=== PATIENT | male | born 1985 | race Caucasian/White ===

== ENCOUNTER 2021-06-13 18:42 | Emergency (ER) | payer OTHER ==
[2021-06-13] MEDS ORDERED: NA CHLORIDE 0.9% 500 ML ONE (21:34)
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
[2021-06-13 22:52] VITALS: TEMP 99.1
[2021-06-13 22:58] VITALS: BP 162/111; O2SAT 96
== END 2021-06-13 22:46 | disposition home or self-care (01) ==
LOC: ER 18:42
DX: S80.02XA Contusion of left knee, initial encounter (principal); S50.01XA Contusion of right elbow, initial encounter; M54.50 Low back pain, unspecified; I11.9 Hypertensive heart disease without heart failure; V49.9XXA Car occupant (driver) (passenger) injured in unspecified traffic accident, initial encounter; I10 Essential (primary) hypertension; Z88.8 Allergy status to other drugs, medicaments and biological substances
CPT/HCPCS: 96360; 99284; J7040

== ENCOUNTER 2023-02-20 09:11 | Inpatient (IN) | payer OTHER ==
--- OUTSIDE RECORDS SUMMARY | 2023-02-20 09:15 | XMS REPORT | Continuity of Care Document ---
Author Name Unknown Address [address] [facility] [place] [address] [facility] thconnect Address [address] [facility] [address] [place] [address] Care Team Providers Care Nursing Student Name Role Phone Unavailable Unavailable Unavailable Encounters Start Date/Time End Date/Time Encounter Type Admission Type Attending Clinicians [facility] Facility Care Department Encounter ID Source 2023-02-02 16:08:24 2023-02-02 16:08:24 Outpatient SFA SFA [id number] Jorge Weinberg 2022-11-05 15:30:44 2022-11-05 15:30:44 Outpatient SFA SFA [id number] Jorge Weinberg 2022-11-02 11:22:08 2022-11-02 11:22:08 Outpatient SFA SFA [id number] Jorge Weinberg 2022-10-19 08:38:42 2022-10-19 08:38:42 Outpatient SFA SFA [id number] Jorge Weinberg 2022-09-08 16:02:06 2022-09-08 16:02:06 Outpatient SFA SFA [id number] Jorge Weinberg 2022-05-20 15:36:20 2022-05-20 15:36:20 Outpatient SFA SFA [id number] Jorge Weinberg 2022-04-27 09:31:27 2022-04-27 09:31:27 Outpatient SFA SFA [id number] Jorge Weinberg 2022-04-24 16:05:20 2022-04-24 16:05:20 Outpatient SFA SFA [id number] Jorge Weinberg 2022-01-13 09:35:12 2022-01-13 09:35:12 Outpatient SFA SFA [id number] Jorge Weinberg 2021-12-15 08:10:07 2021-12-15 08:10:07 Outpatient SFA [facility] [id number] Jorge Weinberg 2021-12-01 10:29:32 2021-12-01 10:29:32 Outpatient SFA SFA [id number] Jorge Weinberg Results Test Description Test Time Test Comments Results Result Co mments Source LIPID [id number] 06:35:25* Test Item Value Reference Range Interpretation Comme nts CHOLESTEROL (test code = 2210) 146 MG/DL <200 TRIGLYCERIDES (test code = 2232) 134 MG/DL <150 HDL CHOLESTEROL (test code = 2220) 36 MG/DL >39 L CALC LDL CHOL (test code = 2237) 87 MG/DL <100 NOTE: CALCULATED LDL IS BASED ON JO-WILL METHOD WHICHINCLUDES ADJUSTABLE TRIGLYCERIDE:VLDL CHOLESTEROL RATIO.THIS FACTOR VARIES BY MEASURED TRIGLYCERIDE AND NON-HDLCHOLESTEROL CONCENTRATIONS WITH INCREASED CALCULATED LDL SEENIN HIGHER TRIGLYCERIDE OR LOWER NON-HDL SPECIMENS. FOR MOREINFORMATION, SEE CLIENT ANNOUNCEMENT AT [email or web address] RISK RATIO LDL/HDL (test code = 2238) 2.42 RATIO <3.55 COMPREHENSIVE METABOLIC [id number] 06:35:25* Test Item Value Reference Range Interpretation Comme nts GLUCOSE (test code = 2217) 98 MG/DL 70-99 BUN (test code = 2208) 11 MG/DL 6-20 CREATININE (test code = 2214) 1.06 MG/DL 0.80-1.40 eGFR (2020 CKD-EPI) (test code = 89438) 92 ML/MIN/1.73 >60 CALC BUN/CREAT (test code = 2235) 10 RATIO 6-28 SODIUM (test code = 2231) 141 MEQ/L 133-146 POTASSIUM (test code = 2228) 2.7 MEQ/L 3.5-5.4 L CHLORIDE (test code = 2215) 101 MEQ/L 95-107 CARBON DIOXIDE (test code = 2206) 27 MEQ/L 19-31 CALCIUM (test code = 2209) 9.5 MG/DL 8.5-10.5 PROTEIN, TOTAL (test code = 2229) 6.7 G/DL 6.1-8.3 ALBUMIN (test code = 2201) 4.4 G/DL 3.5-5.2 CALC GLOBULIN (test code = 2240) 2.3 G/DL 1.9-3.7 CALC A/G RATIO (test code = 2234) 1.9 RATIO 1.0-2.6 BILIRUBIN, TOTAL (test code = 2207) 0.5 MG/DL See_Comment [Automated me ssage] The system which generated this result transmitted reference range: <=1.2. The reference range was not used to interpret this result as normal/abnormal. ALKALINE PHOSPHATASE (test code = 2204) 72 U/L 40-117 AST (test code = 2218) 25 U/L 9-50 ALT (test code = 2219) 41 U/L 5-50 [facility] has impo rtant pathology staff changes effective 04/22/2022. New pathology staff will provide uninterrupted, excellent patient care and clinical consultation. See URL: [email or web address]. UNLESS OTHERWISE INDICATED, ALL TESTING PERFORMED AT [facility] [address] [place] [address] FIRST COAT OPERATOR: KYLIE LEONARDO M.D. CLIA NUMBER [id number] [place]. [id number] 11:39:02* Test Item Value Reference Range Interpretation Comme nts D-DIMER (test code = 1405) 0.46 UG/ML FEU See_Comment NOTE: Provided r eference range is established for evaluation of Deep Venous Thrombosis/Pulmonary Embolus (DVT/PE). Results below cutoff value of <=0.49 UG/ML FEU have a high negative predictive value forDVT/PE. No reference range is established for disseminatedintra-vascul ar coagulation (DIC). UNLESS OTHERWISE INDICATED, [facility] [address] [place] [address] FIRST COAT OPERATOR: NILDA CHAVEZ M.D. CLIA NUMBER [id number] [place]. [id number] [Automated message] The system which generated this result transmitted reference range: <=0.49. The reference range was not used to interpret this result as normal/abnormal. CBC W/AUTO DIFF WITH [id number] 06:45:55* Test Item Value Reference Range Interpretation Comme nts WBC (test code = 1001) 7.5 K/UL 3.5-11.0 RBC (test code = 1002) 5.13 M/UL 4.50-6.10 HEMOGLOBIN (test code = 1003) 15.5 G/DL 13.5-17.0 HEMATOCRIT (test code = 1004) 44.4 % 40.0-51.0 MCV (test code = 1005) 86.5 fL 80.0-99.0 MCH (test code = 1006) 30.2 PG 25.0-33.0 MCHC (test code = 1007) 34.9 G/DL 31.0-36.0 RDW (test code = 1038) 12.1 % 11.5-15.0 NEUTROPHILS (test code = 1008) 49.4 % LYMPHOCYTES (test code = 1010) 39.8 % MONOCYTES (test code = 1011) 7.5 % EOSINOPHILS (test code = 1012) 2.4 % BASOPHILS (test code = 1013) 0.8 % IMMATURE GRANULOCYTES (test code = 1036) 0.1 % NUCLEATED RBCS (test code = 1065) 0.0 /100 WBC'S See_Comment [Automated [employer]] The system which generated this result transmitted reference range: 0.0. The reference range was not used to interpret this result as normal/abnormal. PLATELET COUNT (test code = 1015) 270 K/UL 130-400 ABSOLUTE NEUTROPHILS (test code = 1066) 3.71 K/UL 1.50-7.50 ABSOLUTE LYMPHOCYTES (test code = 1067) 2.99 K/UL 1.00-4.00 ABSOLUTE MONOCYTES (test code = 1068) 0.56 K/UL 0.20-1.00 ABSOLUTE EOSINOPHILS (test code = 1040) 0.18 K/UL 0.00-0.50 ABSOLUTE BASOPHILS (test code = 1069) 0.06 K/UL 0.00-0.20 ABS IMMATURE GRANULOCYTES (test code = 1020) 0.01 K/UL 0.00-0.10 ABS NUCLEATED RBCS (test code = 19316) 0.00 K/UL 0.00-0.11 COMPREHENSIVE METABOLIC [id number] 03:50:21* Test Item Value Reference Range Interpretation Comme nts GLUCOSE (test code = 2217) 93 MG/DL 70-99 BUN (test code = 2207) 13 MG/DL 6-20 CREATININE (test code = 2214) 1.14 MG/DL 0.80-1.40 eGFR (2020 CKD-EPI) (test code = 91525) 85 ML/MIN/1.73 >60 CALC BUN/CREAT (test code = 2235) 11 RATIO 6-28 SODIUM (test code = 223) 141 MEQ/L 133-146 POTASSIUM (test code = 2228) 3.3 MEQ/L 3.5-5.4 L CHLORIDE (test code = 2214) 98 MEQ/L 95-107 CARBON DIOXIDE (test code = 220) 28 MEQ/L 19-31 CALCIUM (test code = 2208) 9.8 MG/DL 8.5-10.5 PROTEIN, TOTAL (test code = 2228) 6.8 G/DL 6.1-8.3 ALBUMIN (test code = 2200) 4.4 G/DL 3.5-5.2 CALC GLOBULIN (test code = 2240) 2.4 G/DL 1.9-3.7 CALC A/G RATIO (test code = 223) 1.8 RATIO 1.0-2.6 BILIRUBIN, TOTAL (test code = 2206) 0.4 MG/DL See_Comment [Automated me ssage] The system which generated this result transmitted reference range: <=1.2. The reference range was not used to interpret this result as normal/abnormal. ALKALINE PHOSPHATASE (test code = 2203) 67 U/L 40-117 AST (test code = 2218) 28 U/L 9-50 ALT (test code = 2219) 42 U/L 5-50 UNLESS OTHERWISE INDICATED, ALL TESTING PERFORMED [facility] [address] [place] [address] FIRST COAT OPERATOR: NILDA CHAVEZ M.D. CLIA NUMBER [id number] [facility] [place]. [id number] COMPREHENSIVE METABOLIC [id number] 23:28:54* Test Item Value Reference Range Interpretation Comme nts GLUCOSE (test code = 7) 96 MG/DL 70-99 BUN (test code = 2207) 13 MG/DL 6-20 CREATININE (test code = 2214) 1.18 MG/DL 0.80-1.40 eGFR (2020 CKD-EPI) (test code = ) 82 ML/MIN/1.73 >60 CALC BUN/CREAT (test code = 2234) 11 RATIO 6-28 SODIUM (test code = 2230) 141 MEQ/L 133-146 POTASSIUM (test code = 2227) 3.3 MEQ/L 3.5-5.4 L CHLORIDE (test code = 2214) 99 MEQ/L 95-107 CARBON DIOXIDE (test code = 2205) 30 MEQ/L 19-31 CALCIUM (test code = 2208) 9.6 MG/DL 8.5-10.5 PROTEIN, TOTAL (test code = 2228) 6.9 G/DL 6.1-8.3 ALBUMIN (test code = 2200) 4.4 G/DL 3.5-5.2 CALC GLOBULIN (test code = 2239) 2.5 G/DL 1.9-3.7 CALC A/G RATIO (test code = 2233) 1.8 RATIO 1.0-2.6 BILIRUBIN, TOTAL (test code = 2206) 0.4 MG/DL See_Comment [Automated me ssage] The system which generated this result transmitted reference range: <=1.2. The reference range was not used to interpret this result as normal/abnormal. ALKALINE PHOSPHATASE (test code = 2203) 70 U/L 40-117 AST (test code = 2217) 18 U/L 9-50 ALT (test code = 2218) 43 U/L 5-50 HEMOGLOBIN [id number] 03:04:38* Test Item Value Reference Range Interpretation Comme nts HEMOGLOBIN A1c (test code = 55930) 5.2 % 4.2-5.6 UNLESS OTHERWISE INDICATED, [facility] TESTING PER[facility]MED [facility] [address] [place] [address] FIRST COAT OPERATOR: NILDA CHAVEZ M.D. CLIA NUMBER [id number] [facility] [place]. [id number] COMPREHENSIVE METABOLIC [id number] 03:00:28* Test Item Value Reference Range Interpretation Comme nts GLUCOSE (test code = 2216) 109 MG/DL 70-99 H BUN (test code = 2207) 14 MG/DL 6-20 CREATININE (test code = 2213) 1.09 MG/DL 0.80-1.40 eGFR (2020 CKD-EPI) (test code = ) 90 ML/MIN/1.73 >60 CALC BUN/CREAT (test code = 2234) 13 RATIO 6-28 SODIUM (test code = 2230) 140 MEQ/L 133-146 POTASSIUM (test code = 2227) 3.0 MEQ/L 3.5-5.4 L CHLORIDE (test code = 2214) 99 MEQ/L 95-107 CARBON DIOXIDE (test code = 2205) 27 MEQ/L 19-31 CALCIUM (test code = 2208) 9.8 MG/DL 8.5-10.5 PROTEIN, TOTAL (test code = 2228) 7.1 G/DL 6.1-8.3 ALBUMIN (test code = 2200) 4.5 G/DL 3.5-5.2 CALC GLOBULIN (test code = 2239) 2.6 G/DL 1.9-3.7 CALC A/G RATIO (test code = 2233) 1.7 RATIO 1.0-2.6 BILIRUBIN, TOTAL (test code = 2206) 0.5 MG/DL See_Comment [Automated me ssage] The system which generated this result transmitted reference range: <=1.2. The reference range was not used to interpret this result as normal/abnormal. ALKALINE PHOSPHATASE (test code = 2203) 72 U/L 40-117 AST (test code = 2217) 29 U/L 9-50 ALT (test code = 2218) 51 U/L 5-50 H LIPID [id number] 03:00:28* Test Item Value Reference Range Interpretation Comme nts CHOLESTEROL (test code = 2209) 166 MG/DL <200 TRIGLYCERIDES (test code = 2231) 149 MG/DL <150 HDL CHOLESTEROL (test code = 2219) 34 MG/DL >39 L CALC LDL CHOL (test code = 2236) 106 MG/DL <100 H NOTE: CALCULATED LDL IS BASED ON JO-WILL METHOD WHICHINCLUDES ADJUSTABLE TRIGLYCERIDE:VLDL CHOLESTEROL RATIO.THIS FACTOR VARIES BY MEASURED TRIGLYCERIDE AND NON-HDLCHOLESTEROL CONCENTRATIONS WITH INCREASED CALCULATED LDL SEENIN HIGHER TRIGLYCERIDE OR LOWER NON-HDL SPECIMENS. FOR MOREINFORMATION, SEE CLIENT ANNOUNCEMENT AT [email or web address] RISK RATIO LDL/HDL (test code = 223) 3.12 RATIO <3.55 UNLESS OTHERW ISE INDICATED, ALL TESTING PERFORMED [facility] [address] [place] [address] FIRST COAT OPERATOR: NILDA CHAVEZ M.D. CLIA NUMBER [id number] [facility] [place]. [id number]
[2023-02-20 09:37] LABS: Absolute Lymphocytes (CBC) 0.7 K/uL (0.7-4.9); Lymphocytes % 2.7 % (15.3-44.8); MCV 87.6 fL (80-100); MPV 9.1 fL (7.6-11.3); Platelets 231 thou/uL (152-406); RBC Red Blood Cell Count 5.03 M/uL (4.33-5.43)
[2023-02-20] MEDS ORDERED: ONDANSETRON 4 MG/2 ML VIAL ONE (09:37)
[2023-02-20] MEDS ORDERED: KETOROLAC 30 MG/ML INJ ONE (09:38)
[2023-02-20] MEDS ORDERED: NA CHLORIDE 0.9% 1,000 ML ONE ×3 (09:38→14:00)
[2023-02-20 09:56] LABS: Albumin 3.5 g/dL (3.4-5.0); Protein, Total 6.9 g/dL (6.4-8.2)
[2023-02-20 09:58] LABS: Potassium 2.6 mEq/L (3.5-5.1)
[2023-02-20 10:15] LABS: SARS-CoV-2 Antigen Rapid Res Negative (Negative)
[2023-02-20 10:27] LABS: Blood Morphology Comment NOT SEEN (NOT SEEN); Platelet Estimate ADEQ
[2023-02-20] MEDS ORDERED: KCL 20 MEQ/100 mL IVPB 100 ML IV ONE (10:41)
[2023-02-20] MEDS ORDERED: POTASSIUM 25 MEQ EFFERV TAB ONE (10:41)
--- NOTE | 2023-02-20 11:01 | RAD REPORT ---
EXAM DESCRIPTION: CT - Abdomen Pelvis W Contrast - 02/20/2023 10:40 am CLINICAL HISTORY: Abdominal pain/vomiting COMPARISON: none. TECHNIQUE: Computed axial tomography of the abdomen pelvis was obtained. 100 cc Isovue-300 was admin istered intravenously. Oral contrast was not requested which limits evaluation of bowel and appendix All CT scans are performed using dose optimization technique as appropriate and may include automated exposure control or mA/KV adjustment according to patient size. FINDINGS: The liver, spleen, pancreas, adrenal and left kidney appear unremarkable. Small right jennfier l cyst There is no evidence of diverticulitis. The appendix is mildly enlarged. No adjacent stranding. No abscess. No free air. Small bilateral inguinal hernias contain fat. Small umbilical hernia Several mildly enlarged right inguinal lymph nodes IMPRESSION: Appendix is mildly enlarged. This may be a normal finding for the patient given the lack of adjacent stranding. An early appendicitis could also have this appearance and should be correlate d clinically Several mildly enlarged right inguinal lymph nodes probably reactive in nature. Lymphoma can also hav e this appearance. It is recommended that the patient have a followup ultrasound in approximately 6 w eeks to assess stability/resolution
--- NOTE | 2023-02-20 11:08 | RAD REPORT ---
EXAM DESCRIPTION: Giancarlo Single View02/20/2023 10:52 am CLINICAL HISTORY: Fever COMPARISON: none FINDINGS: Pulmonary vascular congestion suspected The lungs appear clear of acute infiltrate. The heart is mildly enlarged
[2023-02-20] MEDS ORDERED: NA CHLORIDE 0.9% 100 ML ONE ×2 (11:29→18:15)
[2023-02-20] MEDS ORDERED: PIPERACIL/TAZO 3.375 GM VIAL IV ONE ×2 (11:29→18:15)
--- NOTE | 2023-02-20 12:05 | ER ---
Nurse's Notes [facility] Name: Wong Tim Age: 38 yrs Sex: Male : 1985 Arrival Date: 02/20/2023 Time: 09:11 Bed 18 Private MD: Diagnosis: Severe sepsis without septic shock;Unspecified acute appendicitis;Hypokalemia Presentation: 02/20 09:24 Chief complaint: Dizziness, chills,subjective fever, body aches, and nausea x 2 days, hb vomit x 1 today.. Coronavirus screen: Client presents with at least one sign or symptom that may indicate coronavirus-19. Provider contacted for isolation considerations. Ebola Screen: No symptoms or risks identified at this time. Initial Sepsis Screen: Does the patient meet any 2 criteria? HR > 90 bpm. No. Patient's initial sepsis screen is negative. Does the patient have a suspected source of infection? No. Patient's initial sepsis screen is negative. Risk Assessment: Do you want to hurt yourself or someone else? Patient reports no desire to harm self or others. Onset of symptoms was February 19, 2023. 09:24 Method Of Arrival: Wheelchair hb 09:24 Acuity: NILDA 3 hb Triage Assessment: 14:16 General: Appears in no apparent distress. Behavior is calm, cooperative, appropriate cp4 for age. GI: Reports nausea, vomiting. Historical: - Allergies: 09:25 Lisinopril; hb 09:25 HONEY; hb - Home Meds: 09:25 Metoprolol Tartrate Oral [Active]; Fluoxetine Oral [Active]; amlodipine oral [Active]; hb Hydroxyzine Oral [Active]; losartan oral [Active]; - PMHx: 09:25 Hypertensive disorder; Depression; Anxiety; hb - PSHx: 09:25 None; hb - Immunization history:: Client reports receiving the 2nd dose of the Covid vaccine, Flu vaccine is not up to date. It has been more than one year since last vaccine. - Social history:: Smoking status: Patient denies any tobacco usage or history of. Screenin:00 [facility] ED Fall Risk Assessment (Adult) History of falling in the last 3 months, cp4 including since admission No falls in past 3 months (0 pts) Confusion or Disorientation No (0 pts) Intoxicated or Sedated No (0 pts) Impaired Gait No (0 pts) Mobility Assist Device Used No (0 pt) Altered Elimination No (0 pt) Score/Fall Risk Level 0 - 2 = Low Risk Oriented to surroundings, Maintained a safe environment, Educated pt \T\ family on fall prevention, incl call for assistance when getting out of bed, Assessed \T\ reinforced patient's understanding of fall precautions, Hourly rounding (assess needs \T\ fall precautionary measures) done. Abuse screen: Denies threats or abuse. Nutritional screening: No deficits noted. Tuberculosis screening: No symptoms or risk factors identified. Assessment: 11:09 General: Appears in no apparent distress. Behavior is calm, cooperative, appropriate cp4 for age. Pain: Complains of pain in abdomen. GI: Abdomen is obese, Reports nausea, vomiting. Vital Signs: 09:24 BP 117 / 71; Pulse 109; Resp 18; Temp 100.1(O); Pulse Ox 97% on R/A; Weight 147.42 kg; hb Height 5 ft. 9 in. ; Pain 1/10; 11:11 BP 111 / 62; Pulse 96; Resp 18; Pulse Ox 100% ; cp4 12:20 BP 137 / 73; Pulse 94; Resp 18; Pulse Ox 94% ; cp4 14:17 BP 101 / 57; Pulse 90; Resp 18; Pulse Ox 96% ; cp4 09:24 Body Mass Index 47.99 (147.42 kg, 175.26 cm) hb 09:24 Pain Scale: Adult hb ED Course: 09:12 Patient arrived in ED. rg4 09:13 Carolyn Rabago FNP is [facility]. jh7 09:13 Maximiliano Covarrubias MD is Attending Physician. jh7 09:25 Triage completed. hb 09:27 Arm band placed on. hb 09:35 Inserted saline lock: 20 gauge in right forearm, using aseptic technique. Blood ds4 collected. 09:36 Jacqui Godinez is Primary Nurse. cp4 09:43 SARS RAPID Sent. cp4 09:43 Flu Sent. cp4 10:42 CT Abd/Pelvis - IV Contrast Only In Process Unspecified. EDMS 10:54 XRAY Chest (1 view) In Process Unspecified. EDMS 11:04 Lactate w/ 2H reflex if indic. Sent. cp4 11:04 Blood Culture Adult (2) Sent. cp4 11:09 Bed in low position. Call light in reach. Side rails up X 1. cp4 11:09 No provider procedures requiring assistance completed. Inserted saline lock: 20 gauge cp4 in left antecubital area, using aseptic technique. 12:03 Danny Newell MD is Hospitalizing Provider. jh7 13:03 Lactate w/ 2H reflex if indic.: draw at 1300 Sent. cp4 21:00 Provided Education on: admission. cp4 21:00 Patient admitted, IV remains in place. cp4 Administered Medications: 09:43 Drug: NS 0.9% IV 1000 ml IV at 1 bolus Per protocol; 1000 mL bolus Route: IV; Rate: 1 cp4 bolus; Site: right antecubital; 10:46 Follow up: Response: No adverse reaction; IV Status: Completed infusion cp4 09:43 Drug: TORadol - Ketorolac IVP 30 mg IVP once Route: IVP; Site: right antecubital; cp4 10:45 Follow up: Response: No adverse reaction cp4 09:43 Drug: Ondansetron IVP 4 mg IVP once; over 2 minutes Route: IVP; Site: right antecubital;cp4 10:45 Follow up: Response: No adverse reaction cp4 10:46 Drug: Potassium PO Effervescent Tablet 50 mEq PO once; dissolve in 4 ounces of water or cp4 juice Route: PO; 11:24 Follow up: Response: No adverse reaction cp4 10:47 Drug: NS 0.9% IV 1000 ml IV at 1 bolus Per protocol; 1000 mL bolus Route: IV; Rate: 1 cp4 bolus; Site: right antecubital; 12:12 Follow up: Response: No adverse reaction; IV Status: Completed infusion cp4 11:04 Not Given (Patient Refused): potassium [id number] meq IV at 1 calculated rate once; cp4 administer over 1-2 hours 11:49 Drug: Piperacillin-Tazobactam IVPB 3.375 grams IVPB once over 60 mins; (mix in NS 100 cp4 mL) Route: IVPB; Infused Over: 60 mins; Site: right antecubital; 12:12 Follow up: Response: No adverse reaction; IV Status: Completed infusion cp4 12:13 Drug: NS 0.9% IV 1000 ml IV at 1 bolus Per protocol; 1000 mL bolus Route: IV; Rate: 1 cp4 bolus; Site: right antecubital; 14:26 Follow up: Response: No adverse reaction; IV Status: Completed infusion cp4 Medication: 11:09 VIS not applicable for this client. cp4 Outcome: 12:04 Decision to Hospitalize by Provider. jessica 21:00 Admitted to Med/surg accompanied by tech, via wheelchair, Report called to oJhn cassidy 21:00 Condition: stable 21:00 Instructed on the need for admit, Demonstrated understanding of instructions, 21:01 Patient left the ED. cp4 Signatures: Dispatcher [employer] EDTommy Forde ds4 Aura Herbert, RN RN Angelica Segal rg4 Carolyn Rabago, PORTRAIT PHOTOGRAPHER PORTRAIT PHOTOGRAPHER [email or web address] Jacqui Godinez cp4 Corrections: (The following items were deleted from the chart) 11:04 10:46 Potassium Chloride IV 20 mEq IV at 1 calculated rate in right antecubital cp4 cp4
--- NOTE | 2023-02-20 12:05 | EDPHYS ---
Physician Documentation [facility] Name: Wong Tim Age: 38 yrs Sex: Male : 1985 Arrival Date: 02/20/2023 Time: 09:11 Bed 18 Private MD: ED Physician Maximiliano Covarrubias HPI: 02/20 09:13 This 38 yrs old Male presents to ER via Unassigned with complaints of Nausea, Dizziness.jh7 09:13 The patient presents to the emergency department with nausea, with "dry heaves", jh7 vomiting. Onset: The symptoms/episode began/occurred yesterday. Possible causes: bad food exposure. The symptoms are alleviated by food , movement. Associated signs and symptoms: Pertinent positives: fever, body aches, chills, Pertinent negatives: abdominal pain, constipation, diarrhea, GI bleeding, hematuria. PMH hypertension. The patient states that he has not taken his medication since yesterday at 1 PM.. Historical: - Allergies: 09:25 Lisinopril; hb 09:25 HONEY; hb - Home Meds: 09:25 Metoprolol Tartrate Oral [Active]; Fluoxetine Oral [Active]; amlodipine oral [Active]; hb Hydroxyzine Oral [Active]; losartan oral [Active]; - PMHx: 09:25 Hypertensive disorder; Depression; Anxiety; hb - PSHx: 09:25 None; hb - Immunization history:: Client reports receiving the 2nd dose of the Covid vaccine, Flu vaccine is not up to date. It has been more than one year since last vaccine. - Social history:: Smoking status: Patient denies any tobacco usage or history of. ROS: 09:13 Eyes: Negative for injury, pain, redness, and discharge, ENT: Negative for injury, jh7 pain, and discharge, Neck: Negative for injury, pain, and swelling, Cardiovascular: Negative for chest pain, palpitations, and edema, Respiratory: Negative for shortness of breath, cough, wheezing, and pleuritic chest pain, Back: Negative for injury and pain, MS/Extremity: Negative for injury and deformity, Skin: Negative for injury, rash, and discoloration, 09:13 Constitutional: Positive for body aches, chills, fever, malaise, 09:13 Abdomen/GI: Positive for nausea and vomiting, Negative for abdominal pain, diarrhea, constipation, 09:13 Neuro: Positive for dizziness, headache, Negative for loss of consciousness, numbness, syncope, tingling, visual changes, weakness, 09:13 All other systems are negative, Exam: 09:13 Head/Face: Normocephalic, atraumatic. Eyes: Pupils equal round and reactive to light, jh7 extra-ocular motions intact. Lids and lashes normal. Conjunctiva and sclera are non-icteric and not injected. Cornea within normal limits. Periorbital areas with no swelling, redness, or edema. Neck: Trachea midline, no thyromegaly or masses palpated, and no cervical lymphadenopathy. Supple, full range of motion without nuchal rigidity, or vertebral point tenderness. No Meningismus. Cardiovascular: Regular rate and rhythm with a normal S1 and S2. No gallops, murmurs, or rubs. Normal PMI, no JVD. No pulse deficits. Respiratory: Lungs have equal breath sounds bilaterally, clear to auscultation and percussion. No rales, rhonchi or wheezes noted. No increased work of breathing, no retractions or nasal flaring. Back: No spinal tenderness. No costovertebral tenderness. Full range of motion. MS/ Extremity: Pulses equal, no cyanosis. Neurovascular intact. Full, normal range of motion. Neuro: Awake and alert, GCS 15, oriented to person, place, time, and situation. Cranial nerves II-XII grossly intact. Motor strength 5/5 in all extremities. Sensory grossly intact. Cerebellar exam normal. Normal gait. 09:13 Constitutional: The patient appears alert, awake, obviously ill, actively vomiting 09:13 Skin: Appearance: Color: pale, Temperature: warm, Moisture: diaphoretic, Mild erythema and warmth to palpation noted over the R anterior leon with no fluctuance, induration, or obvious swelling. . Vital Signs: 09:24 BP 117 / 71; Pulse 109; Resp 18; Temp 100.1(O); Pulse Ox 97% on R/A; Weight 147.42 kg; hb Height 5 ft. 9 in. ; Pain /; 11:11 BP 111 / 62; Pulse 96; Resp 18; Pulse Ox 100% ; cp4 12:20 BP 137 / 73; Pulse 94; Resp 18; Pulse Ox 94% ; cp4 14:17 BP 101 / 57; Pulse 90; Resp 18; Pulse Ox 96% ; cp4 09:24 Body Mass Index 47.99 (147.42 kg, 175.26 cm) hb 09:24 Pain Scale: Adult hb MDM: 09:13 Patient medically screened. [facility] 11:19 ED course: Reviewed labs and imaging with the patient. Will consult general surgery and [facility] admit the patient.. 11:30 ED course: Notified by KATHY Dewitt, that Dr. Yo (gen surg) was starting [facility] the case but that she would notify the OR of the patient.. 11:37 Post IV fluid administration reassessment for Sepsis: Client not prescribed the 30 jh7 mL/kg IVF due to: Amount of IVF prescribed: 1999 Pt 147.42 kg, severe sepsis without shock Focused Assessment performed: February 20, 2023 at 11:30 Heart: Regular rate/rhythm noted. Lungs: Noted to be clear bilaterally. Capillary refill examination performed. Capillary refill noted to be brisk. Capillary refill noted to be < 2 seconds. Peripheral pulse evaluation performed. Radial Peripheral pulses noted to be 3+ normal. Skin examination performed. Skin noted to have normal turgor. Current vital signs reviewed: Yes. Passive leg raise examination performed. 11:55 ED course: Notified by KATHY Dewitt, that Dr. Yo stated that he was doing [facility] rounds upstairs but would be down to see the patient.. 12:28 Management of patient was discussed with the following: Manager Environmental Services: Dr. Yo Tommy General Surgery. 12:30 Differential diagnosis: gastritis, cholecystitis, pancreatitis, appendicitis, viral [facility] gastroenteritis, gastroenteritis. Data reviewed: vital signs, nurses notes, lab test result(s), radiologic studies, CT scan, plain films. Consideration of Admission/Observation Patient was admitted/placed on observation. I considered the following discharge prescriptions or medication management in the emergency department Medications were administered in the Emergency Department. See MAR. Independent interpretation of the following test(s) in the Emergency Department X-Ray: My interpretation is no pneumonia. Care significantly affected by the following chronic conditions: Hypertension. Counseling: I had a detailed discussion with the patient and/or guardian regarding the historical points, exam findings, and any diagnostic results supporting the discharge/admit diagnosis, the need for further work-up and treatment in the hospital. Response to treatment: the patient's symptoms have mildly improved after treatment. Awaiting: consulting physician, Dr. Dr. Yo. 02/20 09:21 Order name: CBC with Diff; Complete Time: 10:31 [facility] 02/20 09:21 Order name: CMP; Complete Time: 09:58 [facility] 02/20 09:21 Order name: Lipase; Complete Time: 09:58 [facility] 02/20 09:21 Order name: Flu; Complete Time: 10:32 [facility] 02/20 09:21 Order name: SARS RAPID; Complete Time: 10:31 [facility] 02/20 10:08 Order name: Manual Differential; Complete Time: 10:31 [facility] 02/20 10:12 Order name: Blood Culture Adult (2) [facility] 02/20 10:12 Order name: Lactate w/ 2H reflex if indic.; Complete Time: 11:35 [facility] 02/20 10:15 Order name: Urinalysis W/Microscopic; Complete Time: 12:29 [facility] 02/20 12:36 Order name: Lactate w/ 2H reflex if indic.: draw at 1300 [facility] 02/20 13:24 Order name: Lactate w/ 2H reflex if indic.; Complete Time: 13:36 [facility] 02/20 16:40 Order name: Lactate Sepsis 2 HR Follow-up [facility] 02/20 18:20 Order name: Lactate w/ 2H reflex if indic. [facility] 02/20 18:21 Order name: Troponin High Sensitivity [facility] 02/20 18:21 Order name: NT PRO-BNP [facility] 02/20 10:12 Order name: CT Abd/Pelvis - IV Contrast Only; Complete Time: 11:09 [facility] 02/20 10:15 Order name: XRAY Chest (1 view); Complete Time: 11:09 [facility] 02/20 12:14 Order name: CONS Physician Consult; Complete Time: 13:03 [facility] 02/20 09:21 Order name: IV Saline Lock; Complete Time: 09:35 [facility] 02/20 09:21 Order name: Labs collected and sent; Complete Time: 09:35 [facility] 02/20 12:16 Order name: Recheck Vital Signs; Complete Time: 12:21 [facility] Administered Medications: 09:43 Drug: NS 0.9% IV 1000 ml IV at 1 bolus Per protocol; 1000 mL bolus Route: IV; Rate: 1 cp4 bolus; Site: right antecubital; 10:46 Follow up: Response: No adverse reaction; IV Status: Completed infusion cp4 09:43 Drug: TORadol - Ketorolac IVP 30 mg IVP once Route: IVP; Site: right antecubital; cp4 10:45 Follow up: Response: No adverse reaction cp4 09:43 Drug: Ondansetron IVP 4 mg IVP once; over 2 minutes Route: IVP; Site: right antecubital;cp4 10:45 Follow up: Response: No adverse reaction cp4 10:46 Drug: Potassium PO Effervescent Tablet 50 mEq PO once; dissolve in 4 ounces of water or cp4 juice Route: PO; 11:24 Follow up: Response: No adverse reaction cp4 10:47 Drug: NS 0.9% IV 1000 ml IV at 1 bolus Per protocol; 1000 mL bolus Route: IV; Rate: 1 cp4 bolus; Site: right antecubital; 12:12 Follow up: Response: No adverse reaction; IV Status: Completed infusion cp4 11:04 Not Given (Patient Refused): potassium meq IV at 1 calculated rate once; cp4 administer over 1-2 hours 11:49 Drug: Piperacillin-Tazobactam IVPB 3.375 grams IVPB once over 60 mins; (mix in NS 100 cp4 mL) Route: IVPB; Infused Over: 60 mins; Site: right antecubital; 12:12 Follow up: Response: No adverse reaction; IV Status: Completed infusion cp4 12:13 Drug: NS 0.9% IV 1000 ml IV at 1 bolus Per protocol; 1000 mL bolus Route: IV; Rate: 1 cp4 bolus; Site: right antecubital; 14:26 Follow up: Response: No adverse reaction; IV Status: Completed infusion cp4 Disposition: 02/21 06:59 Co-signature as Attending Physician, Maximiliano Covarrubias MD I reviewed the patient's care rn provided by the Advanced Practice Provider and agree with the diagnosis and treatment plan. Disposition Summary: 02/20/23 12:04 Hospitalization Ordered Notes: Hospitalization Status: Inpatient Admission [facility] Provider: Danny Newell [facility] Location: Telemetry/MedSurg (Inpatient) [facility] Condition: Fair [facility] Problem: new [facility] Symptoms: are unchanged [facility] Bed/Room Type: Standard [facility] Room Assignment: [id number](02/20/23 19:28) [id number] Diagnosis - Severe sepsis without septic shock [facility] - Unspecified acute appendicitis [facility] - Hypokalemia [facility] Forms: - Medication Reconciliation Form [facility] - SBAR form [facility] - Leadership Thank You Letter [facility] Signatures: Dispatcher [employer] EDMaximiliano Ventura MD MD rn Baxter, Heather, RN RN hb Hadash, Jennifer, FURNACE DOOR TENDER FURNACE DOOR TENDER [facility] Jacqui Godinez Jess [facility] Corrections: (The following items were deleted from the chart) 02/20 09:25 09:13 Constitutional: The patient appears alert, awake, obviously ill, [place] [id number] 12:00 09:13 Skin: Appearance: Color: pale, Temperature: warm, Moisture: diaphoretic, [place] [id number] 19:28 12:04 [facility] [id number]
--- NOTE | 2023-02-20 12:16 | P.HP ---
Certification for Inpatient Patient admitted to: Inpatient With expected LOS: <2 Midnights Practitioner: I am a practitioner with admitting privileges, knowledge of patient current condition, hospital course, and medical plan of care. Services: Services provided to patient in accordance with Admission requirements found in Title 42 Section 412.3 of the Code of Federal Regulations Patient History Date of Service: 02/21/23 History of Present Illness: 38-year-old hypertension, anxiety, depression, presents to the emergency room with nausea. Reported symptoms started yesterday after lunch. He reports fever, body aches, chills, he denies abdominal pain, vomiting, diarrhea, dysuria. Plan to admit for sepsis without shock, Hypertensive urgency, appendicitis, surgery to consult. CT of the abdomen pelvis FINDINGS: The liver, spleen, pancreas, adrenal and left kidney appear unremarkable. Small right renal cyst. There is no evidence of diverticulitis. The appendix is mildly enlarged. No adjacent stranding. No abscess. No free air.Small bilateral inguinal hernias contain fat. Small umbilical hernia Several mildly enlarged right inguinal lymph nodes IMPRESSION: Appendix is mildly enlarged. This may be a normal finding for the patient given the lack of adjacent stranding. An early appendicitis could also have this appearance and should be correlated clinically. Several mildly enlarged right inguinal lymph nodes probably reactive in nature. Lymphoma can also have his appearance. It is recommended that the patient have a followup ultrasound in approximately 6 weeks to assess stability/resolution CXR FINDINGS: Pulmonary vascular congestion suspected. The lungs appear clear of acute infiltrate. The heart is mildly enlarged. Lab wBC 26.80, left shift 92.6, hypokalemia 2.6, Lactic acid 2.1, VS H ypertensive 173/117, elevated heart rate 113, 96%. Allergies honey Allergy (Verified 02/20/23 13:20) Shortness of breath lisinopril Allergy (Verified 02/20/23 13:20) Shortness of breath Review of Systems 10-point ROS is otherwise unremarkable Physical Examination - Physical Exam General: Alert, In no apparent distress, Oriented x3 HEENT: Atraumatic, Normocephalic Neck: Supple, 2+ carotid pulse no bruit Respiratory: Clear to auscultation bilaterally, Normal air movement Cardiovascular: Normal pulses, Regular rate/rhythm Capillary refill: <2 Seconds Gastrointestinal: Normal bowel sounds, Soft and benign, No rebound Musculoskeletal: No clubbing, No swelling Integumentary: No rashes, No breakdown Neurological: Normal gait, Normal speech - Studies Laboratory Data (last 24 hrs) 02/20/23 02/20/23 09:31 09:31 WBC 26.80 H Hgb 15.6 Hct 44.0 Plt Count 231 Sodium 136 Potassium 2.6 L* BUN 21 H Creatinine 1.52 H Glucose 140 H Total Bilirubin 1.0 AST 19 ALT 55 Alkaline Phosphatase 60 Lipase 32 Microbiology Data (last 24 hrs): 02/20/23 09:42 Nasopharnyx Influenza Type A Antigen Screen - Final 02/20/23 09:42 Nasopharnyx Influenza Type B Antigen Screen - Final Assessment and Plan - Plan Assessment plan sepsis without shock likely unkn source Flu like symtoms Lactic acidosis Acute appendicitis Surgery consult, IV fluids, IV antibiotics, telemetry Trend lactic, trend WBCs, Lab wBC 26.80, left shift 92.6, Lactic acid 2.1 Influenza neg, BC,UA normal CT of the abdomen pelvis FINDINGS: The liver, spleen, pancreas, adrenal and left kidney appear unremarkable. Small right renal cyst. There is no evidence of div erticulitis. The appendix is mildly enlarged. No adjacent stranding. No abscess. No free air.Small bilateral inguinal hernias contain fat. Small umbilical hernia Several mildly enlarged right inguinal lymph nodes IMPRESSION: Appendix is mildly enlarged. This may be a normal finding for the patient given the lack of adjacent stranding. An early appendicitis could also have this appearance and should be correlated clinically. Several mildly enlarged right inguinal lymph nodes probably reactive in nature. Lymphoma can also have his appearance. It is recommended that the patient have a followup ultrasound in approximately 6 weeks to assess stability/resolution Hypertensive urgency As needed antihypertensives, resume appropriate home meds CXR FINDINGS: Pulmonary vascular congestion suspected. The lungs appear clear of acute infiltrate. The heart is mildly enlarged. Hypertensive 173/117, elevated heart rate 113, 96%. Hypokalemia Trend electrolytes replace prn. hypokalemia 2.6, Acute kidney injury unknown baseline BUN 21 creatinine 1.52 estimated GFR 59 IV fluids, trend kidney function anxiety depression Resume appropriate home meds Diet n.p.o. full code DVT SCDs Discharge Plan: Home - Advance Directives Does patient have a Living Will: No Does patient have a Durable POA for Healthcare: No - Code Status/Comfort Care Code Status: Full Code Critical Care: No Time Spent Managing Pts Care (In Minutes): 55
[2023-02-20 12:27] LABS: Urine Bacteria None Seen /HPF (<20); Urine Bilirubin NEGATIVE (Negative); Urine Blood Negative (Negative); Urine Clarity Clear (Clear); Urine Color Light-Yellow (Yellow); Urine Glucose NEGATIVE (Negative); Urine Protein NEGATIVE (Negative); Urine RBC <5 /HPF (None Seen); Urine Urobilinogen Normal (Normal)
[2023-02-20 12:28] LABS: Specific Gravity > 1.030 (1.005-1.030)
[2023-02-20] MEDS: POTASSIUM CL 40 MEQ in NA CHLORIDE 0.9% 500 ML IV SCH ×2 (13:00)
[2023-02-20 15:18] VITALS: BMI 47.9
[2023-02-20] MEDS ORDERED: INFLUENZA VACCINE (for 6+ mo) 0.5 ML DOSE IMVAC ONE (16:00)
[2023-02-20] MEDS ORDERED: ONDANSETRON 4 MG/2 ML VIAL IV PRN (16:40)
[2023-02-20] MEDS: NA CHLORIDE 0.9% 1,000 ML IV SCH (16:40)
[2023-02-20] MEDS ORDERED: METOPROLOL TARTRATE 5 MG/5 ML INJ IV PRN (16:40)
[2023-02-20] MEDS ORDERED: MORPHINE 4 MG/ML SYR IV PRN (16:40)
[2023-02-20] MEDS: PIPER TAZO 3.375 GM in NA CHLORIDE 0.9% 100 ML IV SCH (17:00)
--- NOTE | 2023-02-20 17:15 | P.CNS ---
Date of Consult: 02/20/23 PC: I was asked to see this patient in the emergency room involving possible acute appendicitis. HPC: Patient is said approximate 1:00 in the morning he does not feel well. He started having temperature, fever and chills. No nausea did have some diarrhea he states. Says he had difficulty walking mainly because he was having so much pain in his hips and his knees. Muscle seems to ache as well. PSHx: NAD PMHx: Hypertension Social Hx: Allergic to honey and lisinopril Sys R: Air entry equal bilaterally, says been a couple of days that he has not felt well. Denies any urinary complaints. O/E: Awake alert vital signs are stable at the moment HEENT: Not jaundiced Chest: Air entry equal bilateral Abd: Skin is actually warm to the touch, however on palpation of the patient's abdomen no guarding rebound or any localizing signs are elicited. [place]: Intact Data: Elevated white cell count, marked hypokalemia Impression: Patient appears to be sick more consistent with a viral type illness in my experience. No abdominal findings at the moment Plan: Patient will be admitted to the hospital, I will follow along with you. I do not feel however this will be requiring any surgery.
[2023-02-20 18:21] LABS: Troponin High Sensitivity 12.4 pg/mL (<58.9)
[2023-02-20] MEDS ORDERED: ACETAMINOPHEN 500 MG TAB PO PRN (23:17)
[2023-02-20] MEDS: KCL 20 MEQ/100 mL IVPB 20 MEQ/100 ML BAG IV SCH (23:41)
[2023-02-20] MEDS ORDERED: NA CHLORIDE 0.9% 250 ML ONE (23:43)
[2023-02-21] MEDS: KCL 20 MEQ/100 mL IVPB 20 MEQ/100 ML BAG IV SCH ×2 (01:47→03:45)
[2023-02-21] MEDS: PIPER TAZO 3.375 GM in NA CHLORIDE 0.9% 100 ML IV SCH ×3 (01:47→16:26)
[2023-02-21] MEDS: NA CHLORIDE 0.9% 1,000 ML IV SCH ×2 (02:40→05:44)
[2023-02-21 08:36] LABS: Hematocrit 35.7 % (39.6-49.0); Lymphocytes % 7.4 % (15.3-44.8); MCV 86.8 fL (80-100); MPV 8.9 fL (7.6-11.3); Platelets 187 thou/uL (152-406); RBC Red Blood Cell Count 4.11 M/uL (4.33-5.43)
--- NOTE | 2023-02-21 08:46 | P.PN ---
Subjective Date of Service: 02/21/23 Chief Complaint: Fever Low grade temp, reports feeling better, reports mild LL NV Abdominal pain General: Alert, In no apparent distress, Oriented x3 HEENT: Atraumatic, Normocephalic Neck: Supple, 2+ carotid pulse no bruit Respiratory: Clear to auscultation bilaterally, Normal air movement Cardiovascular: Normal pulses, Regular rate/rhythm Capillary refill: <2 Seconds Gastrointestinal: Normal bowel sounds, Soft and benign, No rebound Musculoskeletal: No clubbing, No swelling Integumentary: No rashes, No breakdown Neurological: Normal gait, Normal speech <Rowan Ann - Last Filed: 02/21/23 13:43> Date of Service: 02/21/23 <Danny Newell - Last Filed: 02/21/23 17:46> Review of Systems PER HPI <Rowan Ann - Last Filed: 02/21/23 13:43> Physical Examination - Vital Signs Temperature: 100.1 F Blood Pressure: 132/60 Pulse: 96 Respirations: 20 Pulse Ox (%): 94 - Physical Exam General: Alert, In no apparent distress, Oriented x3 HEENT: Atraumatic, Normocephalic Neck: Supple, 2+ carotid pulse no bruit Respiratory: Clear to auscultation bilaterally, Normal air movement Cardiovascular: No edema, Normal pulses Capillary refill: <2 Seconds Gastrointestinal: Normal bowel sounds, Non-distended, No rebound Musculoskeletal: No clubbing, No swelling Integumentary: No rashes, No breakdown Neurological: Normal gait, Normal speech - Studies Laboratory Data (last 24 hrs) 02/20/23 02/20/23 09:31 09:31 WBC 26.80 H Hgb 15.6 Hct 44.0 Plt Count 231 Sodium 136 Potassium 2.6 L* BUN 21 H Creatinine 1.52 H Glucose 140 H Total Bilirubin 1.0 AST 19 ALT 55 Alkaline Phosphatase 60 Lipase 32 Microbiology Data (last 24 hrs): 02/20/23 09:42 Nasopharnyx Influenza Type A Antigen Screen - Final 02/20/23 09:42 Nasopharnyx Influenza Type B Antigen Screen - Final <Rowan Ann - Last Filed: 02/21/23 13:43> Assessment And Plan - Plan Assessment plan sepsis without shock likely related suspected Viral illness improved Lactic acidosis improved suspected Acute appendicitis Surgery consult, No reported need for surgical intervention at this time IV fluids, IV antibiotics, telemetry Trend lactic, trend WBCs, Lab WBC 26.80, left shift 92.6, Lactic acid 2.1 improved Lactic 1.8, WBC 12/31 WBCs 13.20 Blood culture pending, Influenza neg, UA normal Lipid panel triglycerides 50, cholesterol 87, LDL 35, HDL 42, normal Lipase 32 normal, troponin normal at 12.4 magnesium normal at 1.[address] of the abdomen pelvis FINDINGS: The liver, spleen, pancreas, adrenal and left kidney appear unremarkable. Small right renal cyst. There is no evidence of diverticulitis. The appendix is mildly enlarged. No adjacent stranding. No abscess. No free air.Small bilateral inguinal hernias contain fat. Small umbilical hernia Several mildly enlarged right inguinal lymph nodes IMPRESSION: Appendix is mildly enlarged. This may be a normal finding for the patient given the lack of adjacent stranding. An early appendicitis could also have this appearance and should be correlated clinically. Several mildly enlarged right inguinal lymph nodes probably reactive in nature. Lymphoma can also have his appearance. It is recommended that the patient have a followup ultrasound in approximately 6 weeks to assess stability/resolution Hypertensive urgency improved As needed antihypertensives, resume appropriate home meds CXR FINDINGS: Pulmonary vascular congestion suspected. The lungs appear clear of acute infiltrate. The heart is mildly enlarged. Hypertensive 173/117, elevated heart rate 113, 96%. BNP 247, trop normal Hypokalemia- Trend electrolytes replace prn. hypokalemia 2.6,K 2.7, replaced, still trending low, will repeat after rplacment Acute kidney injury unknown baseline BUN 21 creatinine 1.52 estimated GFR 59, IV fluids, trend kidney function anxiety depression Resume appropriate home meds Diet cardiac full code DVT SCDs Discharge Plan: Home Plan to discharge in: 48 Hours - Code Status/Comfort Care Code Status: Full Code Critical Care: No Time Spent Managing PTS Care (In Minutes): 35 <Rowan Ann - Last Filed: 02/21/23 13:43> Physician Review: Patient Assessed, Agree with Above Assessment and Plan Physician Review Additional Text: He reports that his abdominal pain has improved today. Per Dr. Yo, plan for non-surgical management at this time. I have explained his enlarged right inguinal lymph nodes and the potential for malignancy. He was advised to follow- up with his PCP and have a repeat ultrasound in about 1 month to further evaluate. He verbalized understanding and agreed to make this follow-up appointment. Danny Newell M.D. <Danny Newell - Last Filed: 02/21/23 17:46>
[2023-02-21 08:59] LABS: Magnesium 1.8 mg/dL (1.6-2.4); Potassium 2.7 mEq/L (3.5-5.1)
[2023-02-21] MEDS ORDERED: POTASSIUM 25 MEQ EFFERV TAB PO ONE ×2 (09:56→21:59)
[2023-02-21] MEDS ORDERED: KCL 20 MEQ/100 mL IVPB 20 MEQ/100 ML BAG IV SCH (10:00)
[2023-02-21] MEDS ORDERED: POTASSIUM CL SA 10 MEQ TAB PO ONE ×2 (10:58→15:41)
[2023-02-21 14:45] LABS: Magnesium 1.8 mg/dL (1.6-2.4); Potassium 3.2 mEq/L (3.5-5.1)
--- NOTE | 2023-02-21 15:16 | P.PN ---
Date of Service: 02/21/23 S: Patient states he feels much better today O: Abdomen benign A: Nonsurgical abdomen P: Patient does not require surgical intervention at this time thank you for the consult.
[2023-02-21] MEDS ORDERED: MAGNESIUM SULFATE 1 gm IVPB 1 GM/100 ML BAG IV ONE (20:00)
[2023-02-22] MEDS: PIPER TAZO 3.375 GM in NA CHLORIDE 0.9% 100 ML IV SCH ×3 (01:34→16:11)
[2023-02-22 06:05] LABS: Absolute Lymphocytes (CBC) 1.3 K/uL (0.7-4.9); Hematocrit 39.3 % (39.6-49.0); Lymphocytes % 15.1 % (15.3-44.8); MCV 86.7 fL (80-100); MPV 9.2 fL (7.6-11.3); Platelets 170 thou/uL (152-406); RBC Red Blood Cell Count 4.54 M/uL (4.33-5.43)
[2023-02-22 06:14] LABS: Magnesium 2.1 mg/dL (1.6-2.4)
[2023-02-22] MEDS ORDERED: POTASSIUM 25 MEQ EFFERV TAB PO ONE (06:17)
[2023-02-22] MEDS ORDERED: PNEUMOCOCCAL VACCINE 0.5 ML IMVAC ONE (08:00)
[2023-02-22] MEDS: POTASSIUM CL SA 10 MEQ TAB PO SCH ×2 (09:29→13:07)
[2023-02-22 17:54] LABS: Magnesium 2.3 mg/dL (1.6-2.4); Potassium 3.5 mEq/L (3.5-5.1)
--- NOTE | 2023-02-22 17:54 | P.DS ---
Admission Date: 02/20/23 Discharge Date: 02/22/23 Reason for Admission: Fever Brief History of Present Illness: 38-year-old hypertension, anxiety, depression, presents to the emergency room with nausea. Reported symptoms started yesterday after lunch. He reports fever, body aches, chills, he denies abdominal pain, vomiting, diarrhea, dysuria. Plan to admit for sepsis without shock, Hypertensive urgency, appendicitis, surgery to consult. General: Alert, In no apparent distress, Oriented x3 HEENT: Atraumatic, Normocephalic Neck: Supple, 2+ carotid pulse no bruit Respiratory: Clear to auscultation bilaterally, Normal air movement Cardiovascular: Normal pulses, Regular rate/rhythm Capillary refill: <2 Seconds Gastrointestinal: Normal bowel sounds, Soft and benign, No rebound Musculoskeletal: No clubbing, No swelling Integumentary: No rashes, No breakdown Neurological: Normal gait, Normal speech Hospital Course: Follow up with primary care doctor in 7 days after discharge resume home blood pressure medications after discharge Take your blood pressure daily,resume home blood pressure meds take Cirpo and Flagyl as presrcribed Return to Emergency room for chest pain or worsening of symptoms - Plan Assessment plan sepsis without shock likely related suspected Viral illness improved Lactic acidosis improved suspected Acute appendicitis (non surgical per surgery) Surgery consult, No reported need for surgical intervention at this time IV fluids, IV antibiotics, telemetry Trend lactic, trend WBCs, Lab WBC 26.80, left shift 92.6, Lactic acid 2.1 improved Lactic 1.8, WBC 12/31 WBCs 13.20 (repeat WBC 8.0) Blood culture pending, Influenza neg, UA normal Lipid panel triglycerides 50, cholesterol 87, LDL 35, HDL 42, normal Lipase 32 normal, troponin normal at 12.4 magnesium normal at 1.[address] of the abdomen pelvis FINDINGS: The liver, spleen, pancreas, adrenal and left kidney appear unremarkable. Small right renal cyst. There is no evidence of diverticulitis. The appendix is mildly enlarged. No adjacent stranding. No abscess. No free air.Small bilateral inguinal hernias contain fat. Small umbilical hernia Several mildly enlarged right inguinal lymph nodes IMPRESSION: Appendix is mildly enlarged. This may be a normal finding for the patient given the lack of adjacent stranding. An early appendicitis could also have this appearance and should be correlated clinically. Several mildly enlarged right inguinal lymph nodes probably reactive in nature. Lymphoma can also have his appearance. It is recommended that the patient have a followup ultrasound in approximately 6 weeks to assess stability/resolution Hypertensive urgency improved As needed antihypertensives, resume appropriate home meds CXR FINDINGS: Pulmonary vascular congestion suspected. The lungs appear clear of acute infiltrate. The heart is mildly enlarged. Hypertensive 173/117, elevated heart rate 113, 96%. BNP 247, trop normal Hypokalemia-improved Trend electrolytes replace prn. hypokalemia 2.6,K 2.7, replaced, still trending low, will repeat after rplacment repeat K 3.7 Acute kidney injury unknown baseline BUN 21 creatinine 1.52 estimated GFR 59, IV fluids, trend kidney function CT of the abdomen pelvis FINDINGS: The liver, spleen, pancreas, adrenal and left kidney appear unremarkable. Small right renal cyst. There is no evidence of diverticulitis. The appendix is mildly enlarged. No adjacent stranding. No abscess. No free air.Small bilateral inguinal hernias contain fat. Small umbilical hernia Several mildly enlarged right inguinal lymph nodes IMPRESSION: Appendix is mildly enlarged. This may be a normal finding for the patient given the lack of adjacent stranding. An early appendicitis could also have this appearance and should be correlated clinically. Several mildly enlarged right inguinal lymph nodes probably reactive in nature. Lymphoma can also have his appearance. It is recommended that the patient have a followup ultrasound in approximately 6 weeks to assess stability/resolution CXR FINDINGS: Pulmonary vascular congestion suspected. The lungs appear clear of acute infiltrate. The heart is mildly enlarged. Lab wBC 26.80, left shift 92.6, hypokalemia 2.6, Lactic acid 2.1, VS Hypertensive 173/117, elevated heart rate 113, 96%. <Rowan Ann - Last Filed: 02/22/23 18:55> Admission Date: 02/20/23 Discharge Date: 02/22/23 Hospital Course: Pt seen and examined. I agree with the note by the [employer]. Ok to discharge pt. <Lyndon Tony - Last Filed: 02/22/23 19:07> Disposition: ROUTINE DISCHARGE Discharge Condition: GOOD Vital Signs/Physical Exam: Temp Pulse Resp BP Pulse Ox 98.0 F 67 14 144/76 H 96 02/22/23 16:00 02/22/23 16:00 02/22/23 16:00 02/22/23 16:00 02/22/23 16:00 Laboratory Data at Discharge: WBC 8.40 thou/uL (4.3-10.9) 02/22/23 05:50 Hgb 14.1 g/dL (13.6-17.9) D 02/22/23 05:50 Hct 39.3 % (39.6-49.0) L 02/22/23 05:50 Plt Count 170 thou/uL (152-406) 02/22/23 05:50 Sodium 139 mEq/L (136-145) 02/22/23 17:15 Potassium 3.5 mEq/L (3.5-5.1) 02/22/23 17:15 BUN 11 mg/dL (7-18) 02/22/23 17:15 Creatinine 0.93 mg/dL (0.70-1.30) 02/22/23 17:15 Glucose 99 mg/dL (74-106) 02/22/23 17:15 Magnesium 2.3 mg/dL (1.6-2.4) 02/22/23 17:15 Total Bilirubin 1.0 mg/dL (0.2-1.0) 02/20/23 09:31 AST 19 U/L (15-37) 02/20/23 09:31 ALT 55 U/L (16-61) 02/20/23 09:31 Alkaline Phosphatase 60 U/L (45-117) 02/20/23 09:31 Triglycerides 50 mg/dL (<150) 02/21/23 08:18 Cholesterol 87 mg/dL (<200) 02/21/23 08:18 HDL Cholesterol 42 mg/dL (40-60) 02/21/23 08:18 Cholesterol/HDL Ratio 2.07 02/21/23 08:18 Lipase 32 U/L (13-75) 02/20/23 09:31 <Rowan Ann - Last Filed: 02/22/23 18:55> Vital Signs/Physical Exam: Temp Pulse Resp BP Pulse Ox 98.0 F 67 14 144/76 H 96 02/22/23 16:00 02/22/23 16:00 02/22/23 16:00 02/22/23 16:00 02/22/23 16:00 Laboratory Data at Discharge: WBC 8.40 thou/uL (4.3-10.9) 02/22/23 05:50 Hgb 14.1 g/dL (13.6-17.9) D 02/22/23 05:50 Hct 39.3 % (39.6-49.0) L 02/22/23 05:50 Plt Count 170 thou/uL (152-406) 02/22/23 05:50 Sodium 139 mEq/L (136-145) 02/22/23 17:15 Potassium 3.5 mEq/L (3.5-5.1) 02/22/23 17:15 BUN 11 mg/dL (7-18) 02/22/23 17:15 Creatinine 0.93 mg/dL (0.70-1.30) 02/22/23 17:15 Glucose 99 mg/dL (74-106) 02/22/23 17:15 Magnesium 2.3 mg/dL (1.6-2.4) 02/22/23 17:15 Total Bilirubin 1.0 mg/dL (0.2-1.0) 02/20/23 09:31 AST 19 U/L (15-37) 02/20/23 09:31 ALT 55 U/L (16-61) 02/20/23 09:31 Alkaline Phosphatase 60 U/L (45-117) 02/20/23 09:31 Triglycerides 50 mg/dL (<150) 02/21/23 08:18 Cholesterol 87 mg/dL (<200) 02/21/23 08:18 HDL Cholesterol 42 mg/dL (40-60) 02/21/23 08:18 Cholesterol/HDL Ratio 2.07 02/21/23 08:18 Lipase 32 U/L (13-75) 02/20/23 09:31 <Lyndon Tony - Last Filed: 02/22/23 19:07> <Rowan Ann - Last Filed: 02/22/23 18:55> <Lyndon Tony - Last Filed: 02/22/23 19:07> Home Medications: Amlodipine [Norvasc*] 1 tab PO DAILY 02/21/23 Losartan/Hydrochlorothiazide [Losartan-Hctz 100-25 mg Tab] 1 tab PO DAILY 02/21/23 hydrOXYzine HCL [Atarax*] 1 tab PO Q6H PRN 02/21/23 Bacillus Coagulans [Probiotic] 1 each PO BID 7 Days #14 tab 02/22/23 Ciprofloxacin HCl [Cipro 500 MG Tablet] 500 mg PO BID 7 Days #14 tab 02/22/23 metroNIDAZOLE [Flagyl] 500 mg PO Q6H 7 Days #28 mg 02/22/23 New Medications: Ciprofloxacin HCl [Cipro 500 MG Tablet] 500 mg PO BID 7 Days #14 tab metroNIDAZOLE [Flagyl] 500 mg PO Q6H 7 Days #28 mg Bacillus Coagulans [Probiotic] 1 each PO BID 7 Days #14 tab Followup: OOT,OOT [Primary Care Provider] - 1-2 Weeks (call to schedule an appointment)
[2023-02-22 19:23] VITALS: BP 152/89; TEMP 98.2; O2SAT 97
== END 2023-02-22 20:00 | disposition home or self-care (01) | DRG 872 ==
LOC: ER 09:11 → ERHOLD 12:10 → 4TH 20:51
PROVIDERS: ADMIT Internal Medicine; ATTEND Hospitalist
DX: A41.9 Sepsis, unspecified organism (principal); K35.80 Unspecified acute appendicitis; E87.20 Acidosis, unspecified; N17.9 Acute kidney failure, unspecified; R65.20 Severe sepsis without septic shock; I16.0 Hypertensive urgency; I10 Essential (primary) hypertension; E87.6 Hypokalemia; F41.9 Anxiety disorder, unspecified; F32.A Depression, unspecified; N28.1 Cyst of kidney, acquired; Z88.8 Allergy status to other drugs, medicaments and biological substances; Z11.52 Encounter for screening for COVID-19; Z91.018 Allergy to other foods; Z79.899 Other long term (current) drug therapy
CPT/HCPCS: 36415; 71045; 74177; 80048; 80053; 80061; 81001; 83036; 83605; 83690; 83735; 83880; 84132; 84484; 85025; 87040; 87804; 87811; 96361; 96365; 96375; 99285; J2405; J2543; J3475; J3480; J7030; J7040; J7050; Q9967